=== PATIENT | male | born 1995 | race African-American/Black ===

== ENCOUNTER 2024-03-05 09:00 | Outpatient (CLI) | payer OTHER ==
--- NOTE | 2024-03-05 14:30 | XRAY Report ---
PROCEDURE: Finger(s) RT INDICATIONS: CRUSHING INJURY OF RIGHT RING FINGER TECHNIQUE: AP hand, 2 views of the fourth finger(s) acquired. COMPARISON: Right hand radiograph on February 19, 2022. FINDINGS: Bones: Acute, mildly displaced avulsion fracture at the dorsal base of the fourth distal phalanx wit h intra-articular extension. No suspicious bony lesions. Soft tissues: No suspicious soft tissue calcifications or masses. Mild soft tissue swelling of the fourth digit. No radiopaque foreign body. IMPRESSION: Acute, mildly displaced avulsion fracture at the dorsal base of the fourth distal phalanx with intra- articular extension. Reviewed by: Refugio Soriano MD on 03/05/2024 2:28 PM PDT Approved by: Refugio Soriano MD on 03/05/2024 2:28 PM PDT Station ID: [id number]
== END 2024-03-05 09:15 | disposition home or self-care (01) ==
LOC: DI.N 09:00
PROVIDERS: ATTEND Nurse Practitioner
DX: S62.634A Displaced fracture of distal phalanx of right ring finger, initial encounter for closed fracture (principal)